=== PATIENT | female | born 1965 | race Hispanic/Latino ===

== ENCOUNTER 2019-10-04 11:48 | Emergency (ER) | payer MEDICAID ==
[2019-10-04] MEDS ORDERED: METHYLPREDNISOLONE SOD SUCC 40MG/ML 1ML ONE (12:11)
== END 2019-10-04 18:03 | disposition home or self-care (01) ==
LOC: EDH 11:48
DX: T63.441A Toxic effect of venom of bees, accidental (unintentional), initial encounter (principal); Y92.89 Other specified places as the place of occurrence of the external cause
CPT/HCPCS: 96374; 99285; J2920